=== PATIENT | male | born 1995 | race African-American/Black ===

== ENCOUNTER 2022-01-16 09:33 | Outpatient (CLI) | payer OTHER ==
--- NOTE | 2022-01-16 12:32 | MRI Report ---
PROCEDURE: Brain W/O INDICATIONS: HEADACHE TECHNIQUE: Noncontrast axial T1 spin echo, axial T2 fast spin echo, sagittal and axial FLAIR, coronal T2 fast sp in echo, axial gradient echo, axial diffusion and ADC through the brain. COMPARISON: None. FINDINGS: Image quality: Excellent. CSF Spaces: Basal cisterns are patent. No extra-axial fluid collections. Ventricles are normal in size and shape. Brain: No intracranial masses or hemorrhage. Francisco/white matter interface is normal. Brainstem appe ars normal. Diffusion-weighted images demonstrate no acute ischemic insult. No chronic ischemic ins ults. Normal intravascular flow voids are present. Skull and face: Calvarium has normal marrow signal. Orbits appear normal. Sinuses: Sinuses and mastoids are clear. IMPRESSION: No acute process. Negative examination. No explanation for headache. Reviewed by: Arturo Rowland MD on 01/16/2022 12:30 PM PST Approved by: Arturo Rowland MD on 01/16/2022 12:30 PM [facility] Station ID: [id number]
== END 2022-01-16 09:34 | disposition home or self-care (01) ==
LOC: DI 09:33
DX: R51.9 Headache, unspecified (principal)

== ENCOUNTER 2022-02-24 11:55 | Emergency (ER) | payer OTHER ==
[2022-02-24 12:03] VITALS: BP 143/71
[2022-02-24] MEDS ORDERED: KETOROLAC 60 MG/2 ML VIAL IM STA (12:29)
--- NOTE | 2022-02-24 12:35 | ED Physician Documentation ---
PD HPI BACK PAIN - Stated complaint Stated Complaint: BACK PX - Chief complaint Chief Complaint: Back Pain - History obtained from History obtained from: Patient - History of Present Illness Timing - onset: How many days ago (2) Timing - duration: Days (2) Timing - details: Gradual onset Pain level max: 7 Pain level now: 5 Location: Mid, Right, Left Quality: Pain, Spasm Associated symptoms: No: Fever, Weakness, Numbness, Incontinent of urine, Unable to urinate, Hematuria, Incontinent of stool Improves with: Rest Worsened by: Movement, Palpation Contributing factors: No: Lifting, Twisting, Trauma, Anticoagulated, Cancer, IVDA, Out of meds - Additional information Additional information: has had back issues before. Patient states he does not recall any specific injury to his back, but did workout yesterday. He is also having chest wall soreness. No recent illnesses. No cough. No congestion. No fever. Review of Systems Ten Systems: 10 systems reviewed and negative Constitutional: denies: Fever, Chills Nose: denies: Rhinorrhea / runny nose, Congestion Throat: denies: Sore throat Cardiac: reports: Chest pain / pressure (chest wall pain). denies: Palpitations GI: denies: Nausea, Vomiting, Diarrhea Skin: denies: Rash Musculoskeletal: denies: Neck pain, Back pain Neurologic: denies: Headache PD PAST MEDICAL HISTORY - Past Medical History Past Medical History: No - Past Surgical History Past Surgical History: No - Present Medications Home Medications: Ambulatory Orders Medication Instructions Recorded Confirmed Meloxicam [Mobic] 7.5 mg PO BID PRN #20 tablet 02/24/22 methocarbamoL [Robaxin] 500 mg PO Q6H PRN #20 tablet 02/24/22 - Allergies Allergies/Adverse Reactions: Allergies Allergy/AdvReac Type Severity Reaction Status Date / Time No Known Drug Allergies Allergy Verified 02/24/22 12:00 - Living Situation Living Situation: reports: With family Living Arrangement: reports: At home - Social History Does the pt smoke?: No Does the pt have substance abuse?: No PD ED PE NORMAL - Vitals Vital signs reviewed: Yes - General General: Alert and oriented X 3, No acute distress - HEENT HEENT: Atraumatic, Moist mucous membranes - Neck Neck: Supple, no meningeal sign, No bony TTP - Cardiac Cardiac: RRR - Respiratory Respiratory: No respiratory distress, Clear bilaterally - Back Back: No spinal TTP (No midline tenderness to palpation or percussion. No step- off or deformity.) - Derm Derm: Warm and dry - Extremities Extremities: No calf tenderness / cord, Other (Normal bilateral lower extremity patellar and ankle jerk reflexes. Normal great toe extension bilaterally. no saddle anesthesia) - Neuro Neuro: Alert and oriented X 3, No motor deficit, No sensory deficit - Psych Psych: Normal mood, Normal affect - Free text exam Free text exam: Tender to palpation across the anterior chest wall and left and right upper back. Near the rhomboid muscles. Results - Vitals Vitals: Vital Signs - 24 hr 02/24/22 12:01 Temperature 36.4 C L Heart Rate 68 Respiratory 18 Rate Blood Pressure 143/71 H O2 Saturation 99 Oxygen O2 Source Room air - EKG (time done) 1238 Rate: Rate (enter#) (80) Rhythm: NSR [place]: Normal Intervals: Normal PA QRS: Normal Ischemia: Other (minimal ST elevation II) - Labs Labs: Laboratory Tests 02/24/22 02/24/22 02/24/22 13:39 13:39 13:39 WBC 6.1 RBC 5.27 Hgb 15.3 Hct 46.3 MCV 87.9 MCH 29.0 MCHC 33.0 RDW 12.6 Plt Count 189 MPV 10.2 Neut # (Auto) 3.2 Lymph # (Auto) 2.0 Durham # (Auto) 0.8 Eos # (Auto) 0.1 Baso # (Auto) 0.0 Absolute Nucleated RBC 0.00 Nucleated RBC % 0.0 ESR Sodium 136 Potassium 4.1 Chloride 100 L Carbon Dioxide 27 Anion Gap 9.0 BUN 14 Creatinine 1.1 Estimated GFR (MDRD) 99 Glucose 109 H Calcium 9.3 Total Bilirubin 0.5 AST 21 ALT 30 Alkaline Phosphatase 51 Troponin I High Sens < 2.3 L C-Reactive Protein 1.0 Total Protein 7.7 Albumin 4.3 Globulin 3.4 Albumin/Globulin Ratio 1.3 Lipase 36 02/24/22 13:39 WBC RBC Hgb Hct MCV MCH MCHC RDW Plt Count MPV Neut # (Auto) Lymph # (Auto) Durham # (Auto) Eos # (Auto) Baso # (Auto) Absolute Nucleated RBC Nucleated RBC % ESR 1 Sodium Potassium Chloride Carbon Dioxide Anion Gap BUN Creatinine Estimated GFR (MDRD) Glucose Calcium Total Bilirubin AST ALT Alkaline Phosphatase Troponin I High Sens C-Reactive Protein Total Protein Albumin Globulin Albumin/Globulin Ratio Lipase - Rads (name of study) Chest x-ray Radiology: Final report received, EMP read contemporaneously, See rad report (No acute abnormality) PD MEDICAL DECISION MAKING - ED course Complexity details: reviewed results, re-evaluated patient, considered differential (No ST elevation DE, no aortic dissection, no PE, no tension pneumothorax, no aortic aneurysm), d/w patient ED course: 26-year-old male with chest and back pain. Appears to be musculoskeletal on examination. EKG was suspicious for possible pericarditis, but I doubt this on my review of the EKG. His inflammatory markers are also negative so to make pericarditis less likely. No evidence of aortic dissection, PE. Feels better after Toradol. Will treat as musculoskeletal pain and have him follow-up closely with his doctor for repeat evaluation. Patient will return if he worsens. Patient counseled regarding signs and symptoms for which I believe and urgent re-evaluation would be necessary. Patient with good understanding of and agreement to plan and is comfortable going home at this time This document was made in part using voice recognition software. While efforts are made to proofread this document, sound alike and grammatical errors may occur. Departure - Departure Disposition: 01 Home, Self Care Clinical Impression: Back pain Qualifiers: Back pain location: thoracic back pain Chronicity: acute Back pain laterality: bilateral Qualified Code(s): M54.6 - Pain in thoracic spine Condition: Good Instructions: ED Neck Back Pain General Follow-Up: your,doctor in 3 days [Other] Prescriptions: Meloxicam [Mobic] 7.5 mg PO BID PRN #20 tablet PRN Reason: Pain methocarbamoL [Robaxin] 500 mg PO Q6H PRN #20 tablet PRN Reason: muscle spasm Comments: We will try you on anti-inflammatories and muscle relaxants for home. Please follow-up with your doctor for further care. Your EKG showed a possible mild pericarditis, but your inflammatory markers are negative today making this less likely. [facility] [place]. Discharge Date/Time: 02/24/22 14:36
[2022-02-24 13:48] LABS: BASOPHILS % (AUTO) 0.3 %; EOSINOPHILS # (AUTO) 0.1 10^3/uL (0.0-0.7); EOSINOPHILS % (AUTO) 1.3 %; HCT - HEMATOCRIT 46.3 % (42.0-52.0); HGB - HEMOGLOBIN 15.3 g/dL (14.0-18.0); LYMPHOCYTES % (AUTO) 33.1 %; MEAN CORPUSCULAR VOLUME 87.9 fL (80.0-94.0); MEAN PLATELET VOLUME 10.2 fL (7.4-11.4); MONOCYTES # (AUTO) 0.8 10^3/uL (0.0-1.0); MONOCYTES % (AUTO) 12.9 %; NEUTROPHILS # (AUTO) 3.2 10^3/uL (1.5-6.6); NEUTROPHILS % (AUTO) 52.2 %; PLT - PLATELET COUNT 189 10^3/uL (130-450); RED BLOOD COUNT 5.27 10^6/uL (4.70-6.10); RED CELL DISTRIBUTION WIDTH 12.6 % (12.0-15.0); WHITE BLOOD COUNT 6.1 x10^3/uL (4.8-10.8)
[2022-02-24 14:05] LABS: ALBUMIN 4.3 g/dL (3.2-5.5); ALBUMIN/GLOBULIN RATIO 1.3 (1.0-2.2); BILIRUBIN,TOTAL 0.5 mg/dL (0.2-1.0); CALCIUM 9.3 mg/dL (8.5-10.3); CREATININE 1.1 mg/dL (0.6-1.2); POTASSIUM 4.1 mmol/L (3.5-5.0); TOTAL PROTEIN 7.7 g/dL (6.7-8.2)
--- NOTE | 2022-02-24 14:29 | XRAY Report ---
PROCEDURE: Chest 1 View X-Ray INDICATIONS: Chest Pain TECHNIQUE: One view of the chest was acquired. COMPARISON: None FINDINGS: Surgical changes and devices: None. Lungs and pleura: No pleural effusions or pneumothorax. Lungs are clear. Mediastinum: Mediastinal contours appear normal. Heart size is normal. Bones and chest wall: No suspicious bony lesions. Overlying soft tissues appear unremarkable. IMPRESSION: No acute cardiopulmonary findings Reviewed by: Talon Kenny MD on 02/24/2022 1:27 PM [facility] Approved by: Talon Kenny MD on 02/24/2022 1:27 PM [facility] Station ID: [id number]
== END 2022-02-24 14:36 | disposition home or self-care (01) ==
LOC: ED 11:55
DX: M54.6 Pain in thoracic spine (principal)
CPT/HCPCS: 36415; 80053; 83690; 84484; 85025; 85651; 86140; 93005; 96372; 99284

== ENCOUNTER 2022-04-25 16:28 | Emergency (ER) | payer OTHER ==
[2022-04-25 16:49] VITALS: BP 141/76
--- NOTE | 2022-04-25 17:55 | XRAY Report ---
PROCEDURE: Knee 4 View LT INDICATIONS: swelling, pain to knee TECHNIQUE: 4 views of the left knee(s) were acquired. COMPARISON: None. FINDINGS: Bones: No fractures or dislocations. No suspicious bony lesions. Soft tissues: No joint effusion. No suspicious soft tissue calcifications. IMPRESSION: No acute left knee fracture or dislocation. No significant joint effusion. Reviewed by: Wong Cross MD on 04/25/2022 5:54 PM PDT Approved by: Wong Cross MD on 04/25/2022 5:54 PM PDT Station ID: [id number]
[2022-04-25] MEDS: MELOXICAM 7.5 MG TABLET PO STA (19:02)
--- NOTE | 2022-04-25 19:04 | ED Physician Documentation ---
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 Worsening today. Noted swelling as well. Worse with walking, better with rest. 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 Does not recall any specific injury. Review of Systems Constitutional: denies: Fever, Chills Respiratory: denies: Cough GI: denies: Vomiting PD PAST MEDICAL HISTORY - Past Medical History Past Medical History: No - Past Surgical History Past Surgical History: No - Present Medications Home Medications: Ambulatory Orders Medication Instructions Recorded Confirmed Meloxicam [Mobic] 7.5 mg PO BID PRN #20 tablet 02/24/22 methocarbamoL [Robaxin] 500 mg PO Q6H PRN #20 tablet 02/24/22 Meloxicam [Mobic] 7.5 mg PO BID PRN #20 tablet 04/25/22 - Allergies Allergies/Adverse Reactions: Allergies Allergy/AdvReac Type Severity Reaction Status Date / Time No Known Drug Allergies Allergy Verified 04/25/22 16:49 - Social History Does the pt smoke?: No Smoking Status: Never smoker Does the pt have substance abuse?: No PD ED PE NORMAL - Vitals Vital signs reviewed: Yes - General General: Alert and oriented X 3, No acute distress - HEENT HEENT: Moist mucous membranes - Respiratory Respiratory: No respiratory distress - Derm Derm: Warm and dry - Extremities Extremities: Other (No significant tenderness about the left knee. Does have mild swelling and appears to have a small joint effusion. Neurovascularly intact. ACL, MCL, PCL, LCL are intact. Full range of motion of the knee, does have pain at full extension. Normal meniscus testing.) - Neuro Neuro: Alert and oriented X 3 Results - Vitals Vitals: Vital Signs - 24 hr 04/25/22 16:46 Temperature 36.4 C L Heart Rate 68 Respiratory 14 Rate Blood Pressure 141/76 H O2 Saturation 100 Oxygen O2 Source Room air - Rads (name of study) Left knee x-ray Radiology: Final report received, EMP read contemporaneously, See rad report (No acute abnormality) PD MEDICAL DECISION MAKING - ED course Complexity details: reviewed results, considered differential, d/w patient ED course: 26-year-old male with left knee pain of unclear etiology. Potential bursitis? Potential small joint effusion with a meniscal injury? Patient will be placed on crutches. The knee was wrapped and bandaged. We will have him elevate, ice and rest of the knee. We will keep him off of work. Patient will follow up with his doctor for further care and further evaluation. Patient counseled regarding signs and symptoms for which I believe and urgent re-evaluation would be necessary. Patient with good understanding of and agreement to plan and is comfortable going home at this time This document was made in part using voice recognition software. While efforts are made to proofread this document, sound alike and grammatical errors may occur. Departure - Departure Disposition: 01 Home, Self Care Clinical Impression: Left knee pain Qualifiers: Chronicity: acute Qualified Code(s): M25.562 - Pain in left knee Condition: Good Instructions: ED Meniscal Injury Knee Poss, ED Knee Pain UKO Follow-Up: your,doctor in 1 week [Other] Prescriptions: Meloxicam [Mobic] 7.5 mg PO BID PRN #20 tablet PRN Reason: Pain Comments: You may bear weight as tolerated. Follow-up with your doctor for further care. We will prescribe meloxicam for your knee pain. Your doctor may want to perform an MRI if your pain continues. Your prescription was sent to [facility] in [place]. Forms: Activity restrictions Discharge Date/Time: 04/25/22 19:15
== END 2022-04-25 19:15 | disposition home or self-care (01) ==
LOC: ED 16:28
DX: M25.562 Pain in left knee (principal)
CPT/HCPCS: 73564; 99283; 99284; A9270

== ENCOUNTER 2022-08-22 17:43 | Emergency (ER) | payer OTHER ==
--- OUTSIDE RECORDS SUMMARY | 2022-08-22 17:50 | EXTERNAL MEDICAL SUMMARY RPT | Continuity of Care Document ---
:1995 Author Organization [facility] Address [address] [place] [address] Phone Allergies No information. Encounters No information. Functional Status No information. Immunizations No information. Medications No information. Problems No information. Procedures No information. Results/Labs test date author facility value unit interpret ation Result panel 1 (unknown) (no (unknown) (unknown) (no value) (units (unk nown) date) unknown) (unknown) (no (unknown) (unknown) (no value) (units (unk nown) date) unknown) (unknown) (no (unknown) (unknown) [address] [place] [address] (units (unknown) date) unknown) (unknown) (no (unknown) (unknown) [place], [place] (units ( unknown) date) [id number] unknown) (unknown) (no (unknown) (unknown) [facility] (units (unknown) date) unknown) (unknown) (no (unknown) (unknown) Magnetic (units (unkno wn) date) Resonance Report unknown) (unknown) (no (unknown) (unknown) Signed (units (unkno wn) date) unknown) (unknown) (no (unknown) (unknown) (no value) (units (unk nown) date) unknown) (unknown) (no (unknown) (unknown) 07/05/22 (units (unkno wn) date) unknown) (unknown) (no (unknown) (unknown) 1. Patella umu. (units (unknown) date) Prominent edema at unknown) the superolateral aspect of Hoffa's fat (unknown) (no (unknown) (unknown) 2. Intact (units (unkn own) date) cruciate and unknown) collateral ligaments. No acute trabecular bone injury. (unknown) (no (unknown) (unknown) 3. Small medial (units (unknown) date) popliteal cyst. unknown) (unknown) (no (unknown) (unknown) Anterior Cruciate (units (unknown) date) Ligament: Intact. unknown) (unknown) (no (unknown) (unknown) Anterior (units (unkno wn) date) Structures: There unknown) is patella umu. No lateral patellar subluxation (unknown) (no (unknown) (unknown) Approved by: (units (u nknown) date) ashley Hair) Judy on 07/05/2022 at 10:03 (unknown) (no (unknown) (unknown) Bones: No acute (units (unknown) date) trabecular bone unknown) injury or fracture. (unknown) (no (unknown) (unknown) COMPARISON: None. (units (unknown) date) unknown) (unknown) (no (unknown) (unknown) Dictated by: (units (u nknown) date) lizy Hair M.D. on 07/05/2022 at 9:56 (unknown) (no (unknown) (unknown) FINDINGS: (units (unkn own) date) unknown) (unknown) (no (unknown) (unknown) IMPRESSION: (units (un known) date) unknown) (unknown) (no (unknown) (unknown) INDICATIONS: PAIN (units (unknown) date) IN LEFT KNEE unknown) (unknown) (no (unknown) (unknown) Iliotibial band (units (unknown) date) appears normal. unknown) (unknown) (no (unknown) (unknown) Image quality: (units (unknown) date) Excellent. unknown) (unknown) (no (unknown) (unknown) Lateral (units (unkno wn) date) Collateral unknown) Ligament: Intact. (unknown) (no (unknown) (unknown) Lateral (units (unkno wn) date) Femorotibial unknown) Cartilage: Intact. (unknown) (no (unknown) (unknown) Lateral Meniscus: (units (unknown) date) Intact. unknown) (unknown) (no (unknown) (unknown) Medial Collateral (units (unknown) date) Ligament: Intact. unknown) (unknown) (no (unknown) (unknown) Medial (units (unkno wn) date) Femorotibial unknown) Cartilage: Intact. (unknown) (no (unknown) (unknown) Medial Meniscus: (units (unknown) date) Intact. unknown) (unknown) (no (unknown) (unknown) Medial and (units (unk nown) date) Lateral Tendons: unknown) The semimembranosus tendon insertions and (unknown) (no (unknown) (unknown) No abnormal (units (un known) date) bursal fluid. The unknown) long and short heads of the biceps femoris (unknown) (no (unknown) (unknown) Noncontrast (units (un known) date) sagittal PD fast unknown) spin echo and T2 fast spin echo with fat (unknown) (no (unknown) (unknown) Patellofemoral (units (unknown) date) Cartilage: Focal unknown) high-grade cartilage irregularity is seen at (unknown) (no (unknown) (unknown) Posterior (units (unkn own) date) Cruciate Ligament: unknown) Intact. (unknown) (no (unknown) (unknown) Soft Tissues: A (units (unknown) date) physiologic amount unknown) of joint fluid is present. Small medial (unknown) (no (unknown) (unknown) TECHNIQUE: (units (unk nown) date) unknown) (unknown) (no (unknown) (unknown) The distal (units (unk nown) date) quadriceps tendon unknown) is intact. There is prominent edema and mild (unknown) (no (unknown) (unknown) cyst. The (units (unkn own) date) musculature unknown) surrounding the knee is normal in bulk. (unknown) (no (unknown) (unknown) fat saturation, (units (unknown) date) and axial PD fast unknown) spin echo with fat saturation through the (unknown) (no (unknown) (unknown) femoral (units (unkno wn) date) condyle-patellar unknown) tendon friction syndrome. (unknown) (no (unknown) (unknown) intact. The (units (un known) date) popliteus tendon unknown) appears intact. No signs of posterolateral (unknown) (no (unknown) (unknown) junction appear (units (unknown) date) intact. Visualized unknown) portions of the pes anserinus tendons (unknown) (no (unknown) (unknown) meniscal tear is (units (unknown) date) seen. unknown) (unknown) (no (unknown) (unknown) patellar facet (units (unknown) date) with mild unknown) subchondral edema. (unknown) (no (unknown) (unknown) sagittal 3-D (units (u nknown) date) FLASH with fat unknown) saturation; coronal T1 spin echo and PD fast spin (unknown) (no (unknown) (unknown) seen in the (units (un known) date) setting of lateral unknown) femoral condyle-patellar tendon friction (unknown) (no (unknown) (unknown) superolateral (units ( unknown) date) aspect of Hoffa's unknown) fat pad, which can be seen in the setting of (unknown) (no (unknown) (unknown) 3028 (units (unkno wn) date) unknown) (unknown) (no (unknown) (unknown) Accession Number: (units (unknown) date) [id number] unknown) (unknown) (no (unknown) (unknown) Age/Sex: 26 / M (units (unknown) date) Date of Service: unknown) (unknown) (no (unknown) (unknown) : 1995 (units (unknown) date) Acct:[id number] unknown) (unknown) (no (unknown) (unknown) Loc: MRI (units (unkno wn) date) unknown) (unknown) (no (unknown) (unknown) No (units (unkno wn) date) unknown) (unknown) (no (unknown) (unknown) Ordering (units (unkno wn) date) Provider: unknown) Sandoval Macias (unknown) (no (unknown) (unknown) PROCEDURE: MR (units ( unknown) date) KNEE LT WO CON unknown) (unknown) (no (unknown) (unknown) Patient: (units (unkno wn) date) HEAD,KENDY MR#: unknown) [id number] (unknown) (no (unknown) (unknown) Procedure: MR (units ( unknown) date) knee LT wo con unknown) (unknown) (no (unknown) (unknown) appear normal. (units (unknown) date) unknown) (unknown) (no (unknown) (unknown) corner injury. (units (unknown) date) unknown) (unknown) (no (unknown) (unknown) echo with (units (unkn own) date) unknown) (unknown) (no (unknown) (unknown) fluid at the (units (u nknown) date) unknown) (unknown) (no (unknown) (unknown) is seen. (units (unkno wn) date) unknown) (unknown) (no (unknown) (unknown) knee. (units (unkno wn) date) unknown) (unknown) (no (unknown) (unknown) lateral (units (unkno wn) date) unknown) (unknown) (no (unknown) (unknown) meniscocapsular (units (unknown) date) unknown) (unknown) (no (unknown) (unknown) pad can be (units (unk nown) date) unknown) (unknown) (no (unknown) (unknown) popliteal (units (unkn own) date) unknown) (unknown) (no (unknown) (unknown) saturation, (units (un known) date) unknown) (unknown) (no (unknown) (unknown) syndrome. (units (unkn own) date) unknown) (unknown) (no (unknown) (unknown) tendon appear (units ( unknown) date) unknown) (unknown) (no (unknown) (unknown) the medial (units (unk nown) date) unknown) Social History No information. Vital Signs No information.
[2022-08-22 18:07] LABS: BILIRUBIN,URINE NEGATIVE (NEGATIVE); GLUCOSE, URINE (UA) NEGATIVE (NEGATIVE); KETONES,URINE (UA) NEGATIVE (NEGATIVE); LEUKOCYTE ESTERASE, URINE NEGATIVE (NEGATIVE); NITRITE,URINE NEGATIVE (NEGATIVE); OCCULT BLOOD,URINE NEGATIVE (NEGATIVE); PROTEIN,URINE NEGATIVE (NEGATIVE); UROBILINOGEN,URINE 1 (NORMAL) E.U./dL (NORMAL)
[2022-08-22 18:08] LABS: CLARITY,URINE CLEAR (CLEAR)
--- NOTE | 2022-08-22 19:49 | ED Physician Documentation ---
History of Present Illness - Stated complaint Stated Complaint: MALE - Chief complaint Chief Complaint: General - Additonal information Additional information: 26-year-old male presents emergency department for evaluation of dysuria as well as pain and numbness at the distal tip of his urethra. Denies any history of similar in the past. No changes in masturbatory or sexual habits. Denies any instrumentation of his urethra. His noticed that his urethra seemed larger than it typically is. No fevers. Review of Systems Constitutional: denies: Fever, Chills Cardiac: reports: Reviewed and negative Respiratory: reports: Reviewed and negative : reports: Other (Pain at the tip of the penis) Skin: reports: Reviewed and negative Musculoskeletal: reports: Reviewed and negative PD PAST MEDICAL HISTORY - Past Medical History Past Medical History: Yes Cardiovascular: None Respiratory: None Neuro: Headaches Endocrine/Autoimmune: None GI: None : None HEENT: None Psych: None Musculoskeletal: None Derm: None - Past Surgical History Past Surgical History: No - Present Medications Home Medications: Ambulatory Orders Medication Instructions Recorded Confirmed Meloxicam [Mobic] 7.5 mg PO BID PRN #20 tablet 04/25/22 08/22/22 Naproxen 500 mg PO DAILY 08/22/22 08/22/22 SUMAtriptan [Imitrex] 50 mg PO ONCE PRN 08/22/22 08/22/22 - Allergies Allergies/Adverse Reactions: Allergies Allergy/AdvReac Type Severity Reaction Status Date / Time No Known Drug Allergies Allergy Verified 08/22/22 17:45 - Social History Does the pt smoke?: No Smoking Status: Never smoker Does the pt drink ETOH?: Yes Does the pt have substance abuse?: No - Immunizations Immunizations are current?: Yes PD ED PE EXPANDED - Male Male : Circumcised, Testes descended amy, Tenderness, Other (Normal exam of the penis and testes/scrotum. However the urethral Muri meatus measures nearly 2 cm in length and appears larger than I would typically expect. No discharge or erythema). No: Testicular Mass, Normal lie/cremastaric Results - Vitals Vitals: Vital Signs - 24 hr 08/22/22 17:48 Temperature 36.4 C L Heart Rate 78 Respiratory 16 Rate Blood Pressure 151/79 H O2 Saturation 100 Oxygen O2 Source Room air - Labs Labs: Laboratory Tests 09/29/22 18:00 Urine Color YELLOW Urine Clarity CLEAR Urine pH 8.0 H Ur Specific [place] 1.015 Urine Protein NEGATIVE Urine Glucose (UA) NEGATIVE Urine Ketones NEGATIVE Urine Occult Blood NEGATIVE Urine Nitrite NEGATIVE Urine Bilirubin NEGATIVE Urine Urobilinogen 1 (NORMAL) Ur Leukocyte Esterase NEGATIVE Ur Microscopic Review NOT INDICATED Urine Culture Comments NOT INDICATED PD MEDICAL DECISION MAKING - ED course Complexity details: considered differential, d/w patient ED course: 26-year-old male presents emergency department for evaluation of penile pain. His noticed that his urethral meatus was longer and wider than normal. On exam he does have urethral meatus measuring about 1 cm in total length which is longer than is typically seen for males. However no surrounding erythema, drainage or injection concerning for infection. The etiology of symptoms is not clear but he is advised close follow-up with a urologist for further evaluation of his urethral meatus size. Departure - Departure Disposition: 01 Home, Self Care Clinical Impression: Penile anomaly Condition: Stable Record reviewed to determine appropriate education?: Yes Comments: Artem you are seen today in the ER because you have some pain when you pee as well as some discomfort at the tip of your penis. When we look at your urethral meatus or the opening to your penis it appears longer than it would typically expect it to be. I suspect this is the cause of your pain though I am not sure why you have developed this anomaly. I would like you to be seen by a urologist as soon as possible. In the short-term I would like you to apply a thin amount of bacitracin or antibiotic ointment to the tip of your penis. This may help with pain when you urinate.
[2022-08-22 20:04] VITALS: BP 138/52
== END 2022-08-22 20:09 | disposition home or self-care (01) ==
LOC: ED 17:43
DX: Q55.69 Other congenital malformation of penis (principal)
CPT/HCPCS: 81001; 81003; 87086; 99282; 99283

== ENCOUNTER 2023-06-21 15:48 | Emergency (ER) | payer OTHER ==
[2023-06-21 16:14] VITALS: BP 134/80
--- NOTE | 2023-06-21 18:34 | ED Physician Documentation ---
History of Present Illness - Stated complaint Stated Complaint: BACK PX - Chief complaint Chief Complaint: Back Pain - Additonal information Additional information: 27-year-old male presents emergency department for evaluation of 5 days bila teral low back pain without radiation. Denies falls or trauma. Has tried IcyHot, 1 or 2 doses of naproxen and Flexeril without relief of pain. No urinary symptoms. No saddle anesthesia, loss of bowel or bladder function. No intravenous drug use. No history of diabetes or cancer. Review of Systems : denies: Dysuria Musculoskeletal: reports: Back pain PD PAST MEDICAL HISTORY - Past Medical History Cardiovascular: None Respiratory: None Neuro: Headaches Endocrine/Autoimmune: None GI: None : None HEENT: None Psych: None Musculoskeletal: None Derm: None - Past Surgical History Past Surgical History: No - Present Medications Home Medications: Ambulatory Orders Medication Instructions Recorded Confirmed methocarbamoL [Methocarbamol] 500 mg PO Q6H PRN #20 tablet 11/05/22 06/21/23 Cyclobenzaprine [Flexeril] 10 mg PO TID PRN #20 tablet 06/21/23 - Allergies Allergies/Adverse Reactions: Allergies Allergy/AdvReac Type Severity Reaction Status Date / Time No Known Drug Allergies Allergy Verified 06/21/23 16:05 - Social History Does the pt smoke?: No Smoking Status: Never smoker Does the pt drink ETOH?: Yes Does the pt have substance abuse?: No - Immunizations Immunizations are current?: Yes PD ED PE NORMAL - General General: Alert and oriented X 3, No acute distress - Cardiac Cardiac: RRR, No murmur - Respiratory Respiratory: Clear bilaterally - Abdomen Abdomen: Normal bowel sounds, Soft, Non tender, Non distended - Back Back: No CVA TTP, No spinal TTP (No tenderness elicited with palpation of thoracic or lumbar spine. Full forward flexion. Normal gait. Motor strength 5 of 5 BLE) Results - Vitals Vitals: Vital Signs - 24 hr 06/21/23 16:02 Temperature 36.8 C Heart Rate 72 Respiratory 16 Rate Blood Pressure 134/80 H O2 Saturation 98 Oxygen O2 Source Room air PD Medical Decision Making - ED course Complexity details: d/w patient ED course: Well-appearing 27-year-old male here with 5 days of low back pain without any red flag or worrisome features. He has been inconsistent about conservative measures such as Tylenol or naproxen. I am recommending ibuprofen 600 mg with food 2-3 times a day or alternate with Tylenol 500 mg also 2-3 times a day. He will be prescribed some Flexeril to help with spasm and stiffness. Follow-up with [facility] on Friday. If not better after conservative treatment can consider physical therapy. No clinical indication for MRI today. No evidence to suggest cauda equina or spinal epidural abscess. Departure - Departure Disposition: Home, Self Care Clinical Impression: Low back pain Qualifiers: Chronicity: acute Back pain laterality: bilateral Sciatica presence: without s ciatica Qualified Code(s): M54.50 - Low back pain, unspecified Condition: Stable Record reviewed to determine appropriate education?: Yes Instructions: ED Sprain Strain Lumbar Prescriptions: Cyclobenzaprine [Flexeril] 10 mg PO TID PRN #20 tablet PRN Reason: Spasms Comments: You are seen today in the emergency department because for about a week you have been having pain in your low back. As discussed at the bedside I think that you have some simple back strain. I would like you to be consistent in your approach to managing back pain. I like you to take 600 mg of ibuprofen with food 3 times a day. Alternate with Tylenol 500 mg also 2-3 times a day. Gentle stretching is okay but overstretching can worsen symptoms. I am also prescribing Flexeril a muscle relaxant that may be helpful especially with nighttime pain and the stiffness you feel in the morning. Use it cautiously the first few doses as it can be sedating. Follow-up with [facility] on Friday. If not markedly better after 1 to 2 weeks they may elect to make a referral for you to physical therapy. Return to the ER if you have any numbness in your genital region, loss of control of your bowel or bladder function or worsening symptoms.
== END 2023-06-21 18:39 | disposition home or self-care (01) ==
LOC: ED 15:48
DX: M54.50 Low back pain, unspecified (principal)
CPT/HCPCS: 99282; 99283

== ENCOUNTER 2023-08-26 14:15 | Outpatient (CLI) | payer OTHER ==
[2023-08-26 20:31] LABS: CHLAMYDIA TRACHOMATIS DNA NEGATIVE (NEGATIVE); NEISSERIA GONORRHOEAE DNA NEGATIVE (NEGATIVE); TRICHOMONAS VAGINALIS DNA NEGATIVE (NEGATIVE)
[2023-08-27 04:09] LABS: RPR Non Reactive (Non Reactive)
[2023-08-27 05:13] LABS: HCV AB Non Reactive (Non Reactive); HIV SCREEN 4TH GENERATION Non Reactive (Non Reactive)
[2023-08-27 06:11] LABS: HSV 1 IGG TYPE SPEC <0.91 index (0.00-0.90); HSV 2 IGG TYPE SPEC <0.91 index (0.00-0.90)
== END 2023-08-26 14:30 | disposition home or self-care (01) ==
LOC: LAB.N 14:15
PROVIDERS: ATTEND Family Medicine
DX: Z11.3 Encounter for screening for infections with a predominantly sexual mode of transmission (principal)
CPT/HCPCS: 86592; 86695; 86696; 86803; 87389; 87491; 87591; 87661

== ENCOUNTER 2023-10-09 10:15 | Outpatient (CLI) | payer OTHER ==
[2023-10-09 14:55] LABS: CHLAMYDIA TRACHOMATIS DNA NEGATIVE (NEGATIVE); NEISSERIA GONORRHOEAE DNA NEGATIVE (NEGATIVE); TRICHOMONAS VAGINALIS DNA NEGATIVE (NEGATIVE)
[2023-10-10 06:10] LABS: RPR Non Reactive (Non Reactive)
[2023-10-10 08:09] LABS: HCV AB Non Reactive (Non Reactive); HIV SCREEN 4TH GENERATION Non Reactive (Non Reactive)
[2023-10-10 09:10] LABS: HSV 1 IGG TYPE SPEC <0.91 index (0.00-0.90); HSV 2 IGG TYPE SPEC <0.91 index (0.00-0.90)
== END 2023-10-09 10:30 | disposition home or self-care (01) ==
LOC: LAB.N 10:15
PROVIDERS: ATTEND Physician Assistant Medical
DX: Z11.3 Encounter for screening for infections with a predominantly sexual mode of transmission (principal)
CPT/HCPCS: 36415; 86592; 86695; 86696; 86803; 87389; 87491; 87591; 87661

== ENCOUNTER 2024-05-13 08:00 | Outpatient (CLI) | payer OTHER ==
[2024-05-13 23:30] LABS: CHLAMYDIA TRACHOMATIS DNA NEGATIVE (NEGATIVE); NEISSERIA GONORRHOEAE DNA NEGATIVE (NEGATIVE); TRICHOMONAS VAGINALIS DNA NEGATIVE (NEGATIVE)
[2024-05-15 06:15] LABS: HSV 1 IGG TYPE SPEC <0.91 index (0.00-0.90); HSV 2 IGG TYPE SPEC <0.91 index (0.00-0.90); RPR Non Reactive (Non Reactive)
[2024-05-15 07:13] LABS: HIV SCREEN 4TH GENERATION Non Reactive (Non Reactive)
[2024-05-17 03:07] LABS: HCV AB Non Reactive (Non Reactive)
== END 2024-05-13 23:59 | disposition home or self-care (01) ==
LOC: LAB.N 08:00
PROVIDERS: ATTEND Physician Assistant
DX: Z11.3 Encounter for screening for infections with a predominantly sexual mode of transmission (principal)
CPT/HCPCS: 36415; 86592; 86695; 86696; 86803; 87389; 87491; 87591; 87661